=== PATIENT | male | born 2000 | race Caucasian/White ===

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

== ENCOUNTER 2019-02-21 01:07 | Emergency (ER) | payer SELFPAY ==
[2019-02-21 01:08] VITALS: BP 160/91; PULSE 86; RESP 16; TEMP 36.9; O2SAT 99; BMI 32.4
--- NOTE | 2019-02-21 02:08 | ED.VIS.GEN ---
History of Present Illness Chief Complaint: Laceration Narrative: Patient presents with a laceration to his left long finger. This was cut with a knife while skinning a deer. He is uncertain of his last tetanus immunization. No significant pain, no numbness tingling weakness loss of function. Past Medical History - Allergies and Home Meds Allergies/Adverse Reactions: Allergies No Known Allergies Allergy (Verified 02/21/19 01:07) Primary Care Physician: Jr Shahid MD [Primary Care Provider] - Past Medical History: None Surgical History: appendectomy, - - Right foot skin graft Smoking Status: Current every day smoker - Family History Paternal Family History: Reports: - - Appendectomy Review of Systems All systems negative except as indicated General: Denies: Fever Cardiovascular: Denies: Chest pain Respiratory: Denies: Dyspnea, Cough Gastrointestinal: Denies: Vomiting Physical Exam Vital Signs/Narrative: Vital Signs Temp Pulse Resp BP Pulse Ox 02/21/19 01:08 98.5 F 86 16 160/91 H 99 General: Well nourished, Well developed Head: Normocephalic Eyes: EOMI ENT: Moist mucous membranes Extremities: - - 5 mm laceration to the back of the left long finger proximal to the PIP active full range of motion of the digit and hand brisk capillary refill normal sensation to light touch distally Skin: Normal color Neurological: Alert Psychological: Normal affect Diagnostic/Tx/Re-eval - Medical Decision Making Patient presents with a tiny laceration to his finger. This is not gaping it is not bleeding. Dermabond was applied. Patient was instructed on local wound care and was discharged home. ED Disposition - Plan for ED Patient: Disposition: Home or Assisted Living Diagnosis: Finger laceration Instructions: LACERATION, Extremity (Skin Glue) Referrals: Jr Shahid MD [Primary Care Provider] -
[2019-02-21 02:22] VITALS: RESP 16
== END 2019-02-21 02:25 | disposition home or self-care (01) ==
PROVIDERS: Emergency Provider Emergency Medicine; Family Provider Pediatrics; PCP Pediatrics
DX: S61.213A Laceration without foreign body of left middle finger without damage to nail, initial encounter (principal); W26.0XXA Contact with knife, initial encounter; Y93.89 Activity, other specified; Y92.9 Unspecified place or not applicable; Y99.9 Unspecified external cause status; F17.200 Nicotine dependence, unspecified, uncomplicated
CPT/HCPCS: 12001; 90715; 99282

== ENCOUNTER 2020-03-20 23:14 | Emergency (ER) | payer OTHER, MEDICAID, SELFPAY ==
[2020-03-08 15:45] VITALS: BMI 32.4
[2020-03-20 23:15] VITALS: BP 136/74; PULSE 91; RESP 18; TEMP 35.7; O2SAT 97; BMI 34.9
[2020-03-20 23:23] VITALS: BP 136/74; PULSE 91; RESP 18; TEMP 35.7; O2SAT 97
--- NOTE | 2020-03-20 23:35 | ED.VIS.GEN ---
History of Present Illness Chief Complaint: Abscess Informant: Patient Onset: Days - 3-4 Context: Gradual Onset Timing: Continuous Quality: sore Location: perineum Current Severity: Moderate Maximum Severity: Moderate Worsened by: sitting, palpation Relieved by: standing and relieving pressure from affected area Associated Symptoms: none. no spontaneous drainage. no fevers/chills/systemic sx. Narrative: Patient has never had this before. Painful tender area left side of his perineum. Unknown if ingrown hair or something else but no obvious etiology. Has never had to have an abscess drained in the past. Denies having any medical problems. Prior similar symptoms: No Recent Illness/Hospitalization: No Past Medical History - Allergies and Home Meds Allergies/Adverse Reactions: Allergies No Known Allergies Allergy (Verified 02/21/19 01:07) Primary Care Physician: NOT,DEFINED [NON-STAFF] - Past Medical History: None Surgical History: appendectomy, - - Right foot skin graft Smoking Status: Current every day smoker - Family History Paternal Family History: Reports: - - Appendectomy Review of Systems General: Denies: Chills, Fever, Sweats Eyes: Denies: Visual changes - bilaterally, Diplopia ENT: Denies: Rhinorrhea, Sore throat Cardiovascular: Denies: Chest pain, Palpitations Respiratory: Denies: Dyspnea, Cough, Dyspnea on exertion Gastrointestinal: Denies: Abdominal pain, Nausea, Vomiting, Diarrhea, Melena, Hematochezia Genitourinary: Denies: Dysuria, Hematuria, Frequency Musculoskeletal: Denies: Myalgias, Back pain, Swelling, Extremity Pain Skin: Reports: Abscess. Denies: Rash Neurological: Denies: Headache, Weakness, Numbness Physical Exam Vital Signs/Narrative: Vital Signs Temp Pulse Resp BP Pulse Ox 03/20/20 23:23 96.3 F L 91 18 136/74 H 97 03/20/20 23:15 96.3 F L 91 18 136/74 H 97 Inital Vital Signs reviewed: Yes General: Well nourished, Well developed, No Acute Distress Head: Normocephalic, Atraumatic Eyes: Perrl, EOMI Extremities: Nontender, No edema Skin: Normal color, Rash - Approximately 1.5 cm diameter indurated tender abscess in the area of the perineum, just to the left, involving where the scrotum inserts into the perineum but not necessarily into the scrotum. Is just anterior to the anus but is not perianal. No spontaneous discharge. No significant surrounding Neurological: Alert, Oriented x3, Cranial nerves II-XII grossly intact, Normal Strength, Normal Sensation, Normal Gait Psychological: Normal affect, Normal Mood Diagnostic/Tx/Re-eval - Medical Decision Making This abscess was very small and give the patient options, including incision and drainage which she chose, he was also offered 18-gauge needle aspiration and antibiotics only, I did not recommend the latter. He will be placed on Bactrim to cover against MRSA, he was advised with regards to sitz baths and dressing. Procedures Procedure(s): Simple abscess incision and drainage-after isopropanol and chlorhexidine prep, local anesthesia 3 cc 1% plain lidocaine, the abscess was superficially stabbed with a #11 blade, a very small amount of purulent discharge was expressed, there was minimal bleeding, the cavity was probed with Kellys bluntly and irrigated with 20 cc of saline, dressed with bacitracin and a piece of gauze. No complications, tolerated well. ED Disposition - Plan for ED Patient: Disposition: Home or Assisted Living Diagnosis: Cutaneous abscess of perineum Instructions: ED Abscess Incision And Drainage Prescriptions: Sulfamethoxazole/Trimethoprim [Bactrim Ds Tablet] 1 ea PO BID #20 tab Prescription Printed Referrals: Doctor,Your [STAFF PHYSICIAN] - As Needed Additional Instructions: Perform sitz baths twice daily for the first 3 or 4 days, until there is no more bleeding or discharge from the wound, using warm/hot soapy water for 10-15 minutes each. Afterwards, dab dry and place a fresh piece of gauze with antibiotic ointment on the affected area.
[2020-03-20] MEDS: Lidocaine 1% (20 ml mdv) 20 ML Vial INFILT (23:40)
[2020-03-20] MEDS: Smz/Tmp Ds Tablet 1 TABLET PO (23:40)
== END 2020-03-21 00:10 | disposition home or self-care (01) ==
PROVIDERS: Emergency Provider Emergency Medicine
DX: L02.215 Cutaneous abscess of perineum (principal); F17.200 Nicotine dependence, unspecified, uncomplicated
CPT/HCPCS: 10060; 99283

== ENCOUNTER 2020-05-08 21:06 | Emergency (ER) | payer OTHER, MEDICAID, SELFPAY ==
[2020-05-08 21:06] VITALS: BP 141/76; PULSE 88; RESP 16; TEMP 36.6; O2SAT 97; BMI 33.6
--- NOTE | 2020-05-08 21:13 | US_ITS ---
STUDY: SCROTUM ULTRASOUND REASON FOR EXAM: Male, 20 years old. Right-sided pain and swelling. TECHNIQUE: Ultrasound evaluation of the scrotum was performed with color Doppler and static crawford-scale imaging. COMPARISON: None. FINDINGS: RIGHT Testicle: No mass, normal echogenicity. Normal arterial and venous Doppler flow. Measures 4.5 x 2.9 x 2.3 cm. Epididymis: Normal. Contains a physiologic 0.4 cm cyst. Hydrocele: Small. Varicocele: None. Scrotal danica noted on the right, small calcification, benign. LEFT Testicle: No mass, normal echogenicity. Normal arterial and venous Doppler flow. Measures 2.2 x 2.6 x 4.4 cm. Epididymis: Normal. Contains a physiologic 0.4 cm cyst.. Hydrocele: None. Varicocele: None. US/Testicular with Arterial Flow IMPRESSION: Negative for bilateral testicular mass, torsion or epididymitis. Small right hydrocele. Electronically Signed: Caleb Camarena MD at 22:12 EDT Tel , Service support ,
--- NOTE | 2020-05-08 21:14 | ED.DCSUM_ITS ---
History of Present Illness Chief Complaint: Male Pain/Injury Informant: Patient Onset: Days Context: Gradual Onset Timing: Intermittent Current Severity: Moderate Maximum Severity: Moderate Narrative: The patient is a 20-year-old male that presents to the emergency department for right testicular pain. He states that over the past 2 weeks, he has noticed a dull ache in his testicles. He states tonight, he felt like he was having more swelling. He does describe some mild nausea. He denies any penile discharge or bleeding. He denies any back pain. He said no vomiting, fever, or trauma. He is otherwise been in his normal state of health. Prior similar symptoms: No Recent Illness/Hospitalization: No Past Medical History - Allergies and Home Meds Allergies/Adverse Reactions: Allergies No Known Allergies Allergy (Verified 05/08/20 21:08) Primary Care Physician: Denver Riddle MD [STAFF PHYSICIAN] - Prior records reviewed: Yes Past Medical History: None Surgical History: appendectomy, - - Right foot skin graft Smoking Status: Current every day smoker - Family History Paternal Family History: Reports: - - Appendectomy Review of Systems General: Denies: Chills, Fever, Sweats Eyes: Denies: Visual changes - bilaterally, Diplopia ENT: Denies: Rhinorrhea, Sore throat Cardiovascular: Denies: Chest pain, Palpitations Respiratory: Denies: Dyspnea, Cough, Dyspnea on exertion Gastrointestinal: Denies: Abdominal pain, Nausea, Vomiting, Diarrhea, Melena, Hematochezia Genitourinary: Denies: Dysuria, Hematuria, Frequency Musculoskeletal: Denies: Back pain, Extremity Pain Skin: Denies: Rash, Wounds Neurological: Denies: Headache, Weakness, Numbness Physical Exam Vital Signs/Narrative: Vital Signs Temp Pulse Resp BP Pulse Ox 05/08/20 21:06 97.8 F 88 16 141/76 H 97 Inital Vital Signs reviewed: Yes General: Well nourished, Well developed, No Acute Distress Head: Normocephalic, Atraumatic Eyes: Perrl, EOMI ENT: Moist mucous membranes, No rhinorrhea Neck: Supple, Nontender Cardiovascular: Regular rate, Regular rhythm, No murmurs Respiratory: No distress, CTA bilaterally, Chest nontender Abdomen: Soft, Nontender, Nondistended, Normal bowel sounds : - - Patient has mild tenderness over the right testicle. Cremasteric is preserved. Back: Nontender, Normal Inspection Extremities: Nontender, No edema Skin: Normal color, No rash Neurological: Alert, Oriented x3, Cranial nerves II-XII grossly intact, Normal Strength, Normal Sensation Psychological: Normal affect, Normal Mood Diagnostic/Tx/Re-eval Clinical Impression(s) from Imaging Studies Testicular Ultrasound 05/08/20 21:13 IMPRESSION: Negative for bilateral testicular mass, torsion or epididymitis. Small right hydrocele. Electronically Signed: Caleb Camarena MD at 22:12 EDT Tel , Service support , Abnormal Lab Results 05/08/20 21:20 Urine Color Yellow Urine Clarity Clear Urine pH 6.5 Ur Specific [place] 1.020 Urine Protein Negative Urine Glucose (UA) Normal Urine Ketones Negative Urine Occult Blood Negative Urine Nitrite Negative Urine Bilirubin Negative Urine Urobilinogen Normal Ur Leukocyte Esterase Negative Urine RBC 0 SEEN Urine WBC 0 SEEN Ur Squamous Epith Cells 0 SEEN Urine Bacteria RARE Urine Mucus 0 SEEN - Medical Decision Making The patient has normal cremasteric. There is no evidence of torsion. He has mild tenderness of the right testicle. I did obtain an ultrasound. There is no evidence of torsion, epididymitis, or other dangerous process. There is a small hydrocele. I am going to treat the patient with anti-inflammatories and outpatient urology follow-up. He is comfortable with this plan of care. Impression 1. Hydrocele ED Disposition - Plan for ED Patient: Instructions: ED Hydrocele, Type Not Specified Prescriptions: Naproxen [Naprosyn] 500 mg PO BID PRN #20 tab Prescription Printed Referrals: Denver Riddle MD [STAFF PHYSICIAN] -
[2020-05-08 21:32] LABS: Mucous, Urine 0 SEEN /hpf (<or=2+); Red Blood Cells-Urine 0 SEEN /hpf (0-5); Squamous Epithelial Cells - UA 0 SEEN /hpf (0-5); White Blood Cells 0 SEEN /hpf (0-5)
[2020-05-08 21:43] LABS: Color, Urine Yellow (Yellow); Glucose, Dipstick Normal (Normal); Ketone-Dipstick Negative (Negative); Leukocyte Esterase-Dipstick Negative /ul (Negative); Nitrite-Dipstick Negative (Negative); Occult Blood-Urine Negative /ul (Negative); Protein-Dipstick Negative (Negative); Urine Bilirubin Dipstick Negative (Negative); Urine Clarity Clear (Clear); Urine Urobilinogen Normal (Normal); Urine pH 6.5 (5.0 - 8.0)
[2020-05-08 22:08] LABS: Bacteria RARE /hpf (None Seen)
== END 2020-05-08 22:22 | disposition home or self-care (01) ==
LOC: ED 21:25
PROVIDERS: Emergency Provider Emergency Medicine
DX: N43.3 Hydrocele, unspecified (principal); R11.0 Nausea; F17.200 Nicotine dependence, unspecified, uncomplicated
CPT/HCPCS: 76870; 81001; 93976; 99282

== ENCOUNTER 2021-01-22 16:41 | Emergency (ER) | payer BC, MEDICAID, SELFPAY ==
[2021-01-22 16:42] VITALS: BP 124/86; PULSE 96; RESP 14; TEMP 36.2; O2SAT 99; BMI 35.5
--- NOTE | 2021-01-22 18:22 | US_ITS ---
STUDY: SCROTUM ULTRASOUND REASON FOR EXAM: Male, 20 years old. Right testicular pain. TECHNIQUE: Ultrasound evaluation of the scrotum was performed with color Doppler and static crawford-scale imaging. COMPARISON: None. FINDINGS: RIGHT TESTICLE INTRATESTICULAR: There is a normal size of the right testicle. The right testicle measures 4.4 x 2.7 x 2.3 cm. There is a homogenous echotexture. There is normal arterial and normal venous vascularity. There is no demonstrated right testicular mass or cyst. EXTRATESTICULAR: The epididymis is normal in size. The epididymis head measures 1.2 x 0.6 x 0.7 cm. There is normal vascularity of the epididymis. There is a 4 mm epididymal head cyst. There is a small hydrocele. There are prominent extratesticular veins consistent with a varicocele. There is a scrotal parole seen within the hydrocele. LEFT TESTICLE INTRATESTICULAR: There is a normal size of the left testicle. The left testicle measures 4.6 x 2.6 x 2.3 cm. There is a homogenous echotexture. There is normal arterial and normal venous vascularity. There is no demonstrated left testicular mass or cyst. EXTRATESTICULAR: The epididymis is normal in size. The epididymis head measures 1.3 x 1.0 x 0.8 cm. There is normal vascularity of the epididymis. There is no demonstrated epididymal cystic structure. There is is a 3 mm epididymal head cyst. There are prominent extratesticular veins consistent with a varicocele. There is no demonstrated extratesticular mass or cyst. US/Testicular with Arterial Flow IMPRESSION: 1. Right varicocele. 2. Bilateral small hydroceles. 3. Bilateral epididymal head cysts. 4. Normal testicles. Electronically Signed: Jose Francisco Contreras DO at 19:22 EST Tel [phone], Service support ,
--- NOTE | 2021-01-22 19:35 | EDS_ITS ---
HPI History of Present Illness Chief Complaint: Male Pain/Injury Narrative Narrative: Patient continues to have right testicle pain. He states he sometimes feels like it is radiating up into his pelvic area. He denies dysuria. Patient previously had an ultrasound and was told he had varicoceles. He is not followed up with anybody. He denies any trauma. PFSH PFS Home Medications NK 01/22/21 [History Last Taken Unknown] Allergy/AdvReac Type Severity Reaction Status Date / Time No Known Allergies Allergy Verified 01/22/21 16:44 Surgical History Hx of appendectomy Hx of skin graft Social History Smoking Status: Current every day smoker tobacco type: cigarettes ROS ROS ED Constitutional Constitutional ED: Denies fever(s) or subjective Eyes Eyes: Denies blurry vision ENT ENT ED: Denies rhinorrhea or sore throat Cardiovascular Cardiovascular: Denies chest pain or palpitations Respiratory/Chest Respiratory/Chest: Denies cough or dyspnea Gastrointestinal Gastrointestinal: Denies abdominal pain, nausea or vomiting Genitourinary Genitourinary ED: Reports other Details: Right testicular pain ; Denies dysuria, hematuria or testicular swelling Musculoskeletal Musculoskeletal: Denies arthralgias or myalgias Neurologic Neurologic: Denies headache(s) or paresthesias EXAM Physical Exam Const Vital Signs: 01/22/21 16:42 Temperature 97.1 F L Temperature Source Temporal Pulse Rate 96 Respiratory Rate 14 Blood Pressure 124/86 H Blood Pressure Mean 98 Pulse Ox 99 Oxygen Delivery Method Room Air Positive well nourished General Appearance ED: NAD; Negative for pallor HEENT Reports moist mucous membranes normocephalic and atraumatic Eyes EOMs intact bilaterally Resp normal respiratory effort and clear to auscultation bilaterally Cardio regular rate and regular rhythm GI non-tender and non-distended Palpation: soft Penis: normal penis and circumcised Testes: testicular lie normal; Negative for testicular swelling, testicular tenderness or high-riding testicle Back/Spine no CVA tenderness Neuro oriented x3 and CN's II-XII intact bilaterally Sensorium / Orientation: alert Psych mental status grossly normal Thought Process: normal thought process Skin General Skin Exam: Negative for jaundice or pallor Rashes: no rashes MDM MDM MDM Narrative Medical decision making narrative: Patient has a normal testicular exam is not tender to palpation. I did obtain ultrasound of the testicles and it does show a right varicocele which is known from previously. He also has small bilateral hydroceles. In addition to this there is noted bilateral epididymal head cysts. Patient will be given follow-up with urology since he has not followed up since and is continue to have pain. Patient will be discharged home in stable condition. Impression: 1. Right testicular varicocele. 2. Bilateral small hydroceles 3. Bilateral epididymal head cyst Radiography Diagnostic Testing: Clinical Impression(s) from Imaging Studies Testicular Ultrasound 01/22/21 18:22 IMPRESSION: 1. Right varicocele. 2. Bilateral small hydroceles. 3. Bilateral epididymal head cysts. 4. Normal testicles. Electronically Signed: Jose Francisco ContrerasDO at 19:22 EST Tel [phone], Service support , Discharge Plan Triage Chief Complaint: Male Pain/Injury ED Provider: Severino Hamm Dx/Rx/DC Orders Instructions: ED Varicocele Prescriptions: No Action NK RF: 0 Primary Care Provider: Care Physician,No Primary Referrals: Denver Riddle MD [STAFF PHYSICIAN] - As soon as possible Care Physician,No Primary [Primary Care Provider] - Activity Restrictions/Additional Instructions: You have a varicocele on your right testicle. You have small hydroceles on each testicle. There is also small cysts on each testicle. I have given you follow- up with Dr. Riddle for this. Disposition Disposition: Home, Self Care Discharge Date/Time: 01/22/21 19:44
== END 2021-01-22 19:44 | disposition home or self-care (01) ==
PROVIDERS: Emergency Provider Student in an Organized Health Care Education/Training Program
DX: I86.1 Scrotal varices (principal); N43.3 Hydrocele, unspecified; N50.3 Cyst of epididymis; F17.210 Nicotine dependence, cigarettes, uncomplicated
CPT/HCPCS: 76870; 93976; 99282

== ENCOUNTER 2021-10-02 19:43 | Emergency (ER) | payer MEDICAID, SELFPAY ==
[2021-10-02 19:44] VITALS: BP 125/84; PULSE 98; RESP 18; TEMP 36.1; O2SAT 98; BMI 37.5
--- NOTE | 2021-10-02 19:56 | US_ITS ---
EXAM: US SCROTUM CLINICAL INDICATION: right testicle pain TECHNIQUE: Realtime ultrasound of the testicles was performed with grayscale and Color Doppler analysis. This report was created using e[employer] report [employer] technology. COMPARISON: 01/22/2021. FINDINGS: RIGHT TESTICLE: Right testis measures 4.4 x 2.5 x 2.8 cm. Normal in size and echotexture. No focal lesion. Normal blood flow is present. LEFT TESTICLE: Left testis measures 4.4 x 2.3 x 2.9 cm. Normal in size and echotexture. No focal lesion. Normal blood flow is present. EPIDIDYMIDES: Right epididymal head measures 1.3 x 0.6 cm. 3 mm epididymal cyst. Left epididymal head measures 1 x 0.9 cm. Left epididymal cysts measure 3 mm. Normal color Doppler flow pattern in the epididymis. SCROTUM: Incidental calcification in the right scrotum. No hydrocele. No varicocele. US/Testicular with Arterial Flow IMPRESSION: 1. Normal testes. No acute findings. 2. Epididymal cysts. Electronically Signed: Terrie Sharma MD at 21:42 EDT Reading Location ID and State: [id number] / Tel , Service support ,
--- NOTE | 2021-10-02 19:57 | EX.ED.GUMALE ---
HPI History of Present Illness Chief Complaint: Male Pain/Injury Narrative Narrative: 21-year-old male presenting with right testicular pain. States has had this in the past. He was told it was a cyst. He was given urology follow-up. He states he followed up with somebody in [place]. He cannot recall his name. He states that when he saw him he was told that the cyst is too small and there is nothing to do for it. He states that he started to have pain again a couple of months ago and his urologist that if he has pain to go to the emergency room. He did not want to see him back in the office for repeat visit. Patient denies any trauma to the testicle. He denies any urethral discharge. He denies rashes. PFSH PFSH Home Medications naproxen 500 mg tablet (Naprosyn) 500 mg PO BID PRN pain #20 tabs 10/02/21 [Rx Last Taken Unknown] Allergy/AdvReac Type Severity Reaction Status Date / Time No Known Allergies Allergy Verified 10/02/21 19:45 Surgical History Hx of appendectomy Hx of skin graft Social History Smoking Status: Current every day smoker tobacco type: cigarettes ROS ROS ED Constitutional Constitutional ED: Denies chills or fever(s) Eyes Eyes: Denies change in vision ENT ENT ED: Denies rhinorrhea or sore throat Cardiovascular Cardiovascular: Denies chest pain or palpitations Respiratory/Chest Respiratory/Chest: Denies cough or dyspnea Gastrointestinal Gastrointestinal: Denies abdominal pain or constipation Genitourinary Genitourinary ED: Reports other Details: No urethral discharge. Right testicular pain ; Denies dysuria, hematuria or testicular mass Musculoskeletal Musculoskeletal: Denies arthralgias or back pain Integumentary Denies abscess Neurologic Neurologic: Denies headache(s) Psychiatric Psychiatric: Denies anxiety or depression EXAM Physical Exam Const Vital Signs: 10/02/21 19:44 Temperature 97 F L Temperature Source Temporal Pulse Rate 98 Respiratory Rate 18 Blood Pressure 125/84 H Blood Pressure Mean 97 Pulse Ox 98 Oxygen Delivery Method Room Air Positive well nourished General Appearance ED: Negative for pallor HEENT Reports moist mucous membranes and dry mucous membranes normocephalic and atraumatic Mouth ED: Yes dry mucous membranes Mouth: dry mucous membranes Eyes PERRL and EOMs intact bilaterally Neck no lymphadenopathy Resp normal respiratory effort and clear to auscultation bilaterally Cardio regular rate and regular rhythm GI non-tender no CVA tenderness Penis: normal penis; Negative for ecchymosis, mass, nodule, papules, pustules or vesicles Meatus: meatus normal; Negative for meatal discharge or blood at meatus Scrotum: testes descended bilaterally and cremasteric reflex present Testes: testicular lie normal and testicular tenderness right; Negative for testicular mass, blue dot sign or high-riding testicle Epididymis: Right: Cyst Back/Spine no CVA tenderness Neuro oriented x3 and CN's II-XII intact bilaterally Sensorium / Orientation: alert Motor Exam: strength 5/5 throughout Psych mental status grossly normal Skin General Skin Exam: Negative for jaundice or pallor MDM MDM MDM Narrative Medical decision making narrative: 21-year-old male presenting with testicular pain and has a history of epididymal cysts. He seen urology in [place] for this. He is currently awaiting another urology appointment and [facility]. He states that he cannot see urology in [place] because of his insurance. He has some pain over the right epididymal region without any physical exam evidence of testicular torsion. I checked a urinalysis which is negative. Testicular ultrasound is negative for torsion and shows good blood flow there is again noted epididymal cyst. Patient counseled to follow-up with urology for this. He is given Naprosyn for pain. Patient stable for discharge. Impression: 1 epididymal cyst Lab Data Attestation: I reviewed the patient's lab results. Labs: Laboratory Results - last 24 hr 10/02/21 20:15 Urine Color Yellow Urine Clarity Clear Urine pH 7.0 Ur Specific [place] 1.015 Urine Protein Negative Urine Glucose (UA) Normal Urine Ketones Negative Urine Occult Blood Negative Urine Nitrite Negative Urine Bilirubin Negative Urine Urobilinogen Normal Ur Leukocyte Esterase Negative Urine RBC 0 SEEN Urine WBC 0-5 SEEN Ur Squamous Epith Cells 0-5 SEEN Urine Bacteria 0 SEEN Urine Mucus 0 SEEN Radiography Diagnostic Testing: Clinical Impression(s) from Imaging Studies Testicular Ultrasound 10/02/21 19:56 IMPRESSION: 1. Normal testes. No acute findings. 2. Epididymal cysts. Electronically Signed: Terrie Sharma MD at 21:42 EDT Reading Location ID and State: [id number] / Tel , Service support , Discharge Plan Triage Chief Complaint: Male Pain/Injury ED Provider: Severino Hamm Dx/Rx/DC Orders Instructions: ED Testicular Pain, Unclear Cause Prescriptions: New naproxen [Naprosyn] 500 mg tablet 500 mg PO BID PRN (Reason: pain) Qty: 20 0RF Primary Care Provider: Care Physician,No Primary Referrals: Care Physician,No Primary [Primary Care Provider] - Disposition Disposition: Home, Self Care
[2021-10-02 20:22] LABS: Bacteria 0 SEEN /hpf (None Seen); Mucous, Urine 0 SEEN /hpf (<or=2+); Red Blood Cells-Urine 0 SEEN /hpf (0-5)
[2021-10-02 20:33] LABS: Color, Urine Yellow (Yellow); Glucose, Dipstick Normal (Normal); Ketone-Dipstick Negative (Negative); Leukocyte Esterase-Dipstick Negative /ul (Negative); Nitrite-Dipstick Negative (Negative); Occult Blood-Urine Negative /ul (Negative); Protein-Dipstick Negative (Negative); Specific Gravity, Urine 1.015 (1.002-1.030); Urine Bilirubin Dipstick Negative (Negative); Urine Clarity Clear (Clear); Urine Urobilinogen Normal (Normal)
[2021-10-02 21:26] LABS: Squamous Epithelial Cells - UA 0-5 SEEN /hpf (0-5); White Blood Cells 0-5 SEEN /hpf (0-5)
[2021-10-02 22:11] VITALS: BP 138/76; PULSE 76; RESP 18; O2SAT 100
== END 2021-10-02 22:12 | disposition home or self-care (01) ==
PROVIDERS: Emergency Provider Student in an Organized Health Care Education/Training Program; Visit Provider Student in an Organized Health Care Education/Training Program
DX: N50.3 Cyst of epididymis (principal); F17.210 Nicotine dependence, cigarettes, uncomplicated
CPT/HCPCS: 76870; 81001; 93976; 99282

== ENCOUNTER 2021-11-05 12:14 | Observation (INO) | payer MEDICAID, SELFPAY ==
[2021-11-05] VITALS (8 sets, daily range): BP systolic 117–129; BP diastolic 65–96; PULSE 73–90; RESP 16–18; TEMP 36.4–36.9; O2SAT 73–97; BMI 37.3; BMI 37.4
--- NOTE | 2021-11-05 12:26 | EDS_ITS ---
HPI HPI - Psych History of Present Illness Chief Complaint: Mental Health Informant: patient Narrative Narrative: Patient is a 21-year-old male presenting via police for concern of depression and suicidal ideation. Patient called his father today saying that he was depressed. He took 5-7 of his 's Wellbutrin which he states to help him feel happier. Patient states that he looked up on the Internet how much he took and then called his father to tell him. Patient states he did not realize he took too much when he initially took these pills. Told his father that he wants to end it. When asked about this patient states he was talking about ending his depression. Father called 911 and patient was brought to the emergency room cooperatively. Patient currently denies SI. Patient states he has a lot of recent stressors life as his left him last week with her daughter. His other daughter was recently removed from his household and there is an active CPS case. He also notes that his aunt couple weeks ago from cancer. Patient states I give up on trying to make everyone happy and I cannot be happy if not with my . He talks about giving up. He does follow with a new day and sees counseling with Sunita there. He is never been on any depression medications. The pill bottle brought in and his bupropion SR 150 mg. It was filled on 11/23/2020. [facility] Home Medications NK 11/05/21 [History Last Taken Unknown] Allergy/AdvReac Type Severity Reaction Status Date / Time No Known Allergies Allergy Verified 11/05/21 12:27 Surgical History Hx of appendectomy Hx of skin graft Social History Smoking Status: Current every day smoker tobacco type: cigarettes ROS ROS ED Constitutional Constitutional ED: Denies chills or fever(s) Eyes Eyes: Denies change in vision ENT ENT ED: Denies sore throat Cardiovascular Cardiovascular: Denies chest pain or palpitations Respiratory/Chest Respiratory/Chest: Denies cough Gastrointestinal Gastrointestinal: Denies abdominal pain, nausea or vomiting Musculoskeletal Musculoskeletal: Denies arthralgias or myalgias Integumentary Denies rash Neurologic Neurologic: Denies headache(s) or weakness Psychiatric Psychiatric: Reports depression; Denies anxiety, suicidal ideation or suicidal thoughts EXAM Physical Exam Const Vital Signs: 11/05/21 12:16 11/05/21 13:15 Temperature 97.7 F L Temperature Source Temporal Pulse Rate 90 Respiratory Rate 16 16 Blood Pressure 129/96 H Blood Pressure Mean 107 Pulse Ox 97 Oxygen Delivery Method Room Air Positive well nourished and well developed General Appearance ED: well developed and NAD HEENT Reports moist mucous membranes Eyes PERRL and EOMs intact bilaterally Neck supple Resp normal respiratory effort and clear to auscultation bilaterally Cardio no murmurs Rate: regular rate Rhythm: regular rhythm GI non-tender and non-distended Extremity normal to inspection General Extremety ED: Negative for edema or tenderness General Extremity: Negative for edema Neuro oriented x3 Motor Exam: muscle tone normal throughout Psych cooperative Appearance: grossly normal Activity / Motor Behavior: avoids eye contact Mood & Affect: depressed Thought Process: normal thought process Thought Content: No suicidality and No homicidality Attention / Concentration: attention grossly intact Insight: limited Judgement: questionable Skin Lesions: no lesions Rashes: no rashes MDM MDM MDM Narrative Medical decision making narrative: Patient evaluated after he intentionally took 5 to 7 x 150 mg Wellbutrin SR tablets. He states he was not trying to overdose just trying to feel better. Patient is depressed with a family history of suicide and multiple home stressors. Is not currently on any medications. Spoke with poison controlAlex, who recommends watching him for 24 hours because of risk of late onset seizures and arrhythmia. Patient be admitted to the hospital for further monitoring until be medically cleared and then obtain psychiatric placement. [place] slip is filed from police. Lab Data Attestation: I reviewed the patient's lab results. Labs: Laboratory Results - last 24 hr 11/05/21 11/05/21 11/05/21 12:30 13:00 13:00 WBC 8.9 RBC 5.52 Hgb 17.3 H Hct 47.7 MCV 86.4 MCH 31.3 MCHC 36.3 H RDW Std Deviation 40.0 RDW Coeff of Luis Angel 13.0 Plt Count 265 MPV 9.3 Immature Gran % (Auto) 0.200 Neut % (Auto) 72.3 H Lymph % (Auto) 18.0 L Starr % (Auto) 8.9 Eos % (Auto) 0.3 Baso % (Auto) 0.3 Absolute Neuts (auto) 6.5 Absolute Lymphs (auto) 1.61 Nucleated RBC % 0 Sodium 140 Potassium 3.7 Chloride 108 H Carbon Dioxide 25.0 Anion Gap 7 BUN 13 Creatinine 1.35 H Estim Creat Clear Calc 80.24 Est GFR (MDRD) Af Amer 85 Est GFR (MDRD) Non-Af 70 BUN/Creatinine Ratio 9.6 L Glucose 110 H Calcium 9.9 Urine Opiates Screen NEGATIVE Urine Methadone Screen NEGATIVE Ur Barbiturates Screen NEGATIVE Ur Phencyclidine Scrn NEGATIVE Ur Amphetamines Screen NEGATIVE MDMA (Ecstasy) Screen POSITIVE H U Benzodiazepines Scrn NEGATIVE Urine Cocaine Screen NEGATIVE U Cannabinoids Screen NEGATIVE Ur Drug Screen Comment Ethyl Alcohol 11/05/21 13:00 WBC RBC Hgb Hct MCV MCH MCHC RDW Std Deviation RDW Coeff of Luis Angel Plt Count MPV Immature Gran % (Auto) Neut % (Auto) Lymph % (Auto) Starr % (Auto) Eos % (Auto) Baso % (Auto) Absolute Neuts (auto) Absolute Lymphs (auto) Nucleated RBC % Sodium Potassium Chloride Carbon Dioxide Anion Gap BUN Creatinine Estim Creat Clear Calc Est GFR (MDRD) Af Amer Est GFR (MDRD) Non-Af BUN/Creatinine Ratio Glucose Calcium Urine Opiates Screen Urine Methadone Screen Ur Barbiturates Screen Ur Phencyclidine Scrn Ur Amphetamines Screen MDMA (Ecstasy) Screen U Benzodiazepines Scrn Urine Cocaine Screen U Cannabinoids Screen Ur Drug Screen Comment Ethyl Alcohol < 3.0 Rhythm Strip Rhythm Strip: Sinus Rhythm Rate: 82 Ectopy: None EKG Initial EKG: Attestation: I personally reviewed and interpreted this EKG as follows: Interpretation: Sinus Rhythm Comments: Normal sinus rhythm at a rate of 82 Normal axis Normal QRS Normal QTc Normal ST segments Discharge Plan Triage Chief Complaint: Mental Health ED Provider: Mireya Del Angel Dx/Rx/DC Orders Clinical Impression: Depression, Bupropion overdose Prescriptions: No Action NK Primary Care Provider: Care Physician,No Primary Referrals: Care Physician,No Primary [Primary Care Provider] - Disposition Disposition: Acute Care Hospital [facility]
[2021-11-05 12:55] LABS: Amphetamine Urine VISTA NEGATIVE (<1000 ng/mL); Barbiturate Urine VISTA NEGATIVE (< 200 ng/mL); Benzodiazepine Urine VISTA NEGATIVE (< 200 ng/mL); Cocaine Urine VISTA NEGATIVE (< 300 ng/mL); Ecstacy Urine VISTA POSITIVE (< 500 ng/mL); Methadone Urine VISTA NEGATIVE (< 300 ng/mL); PCP Urine VISTA NEGATIVE (< 25 ng/mL); THC Urine VISTA NEGATIVE (< 50 ng/mL); Vista UDS pH Range 6
[2021-11-05 13:06] LABS: Absolute Lymphocyte Count 1.61 X10^3/uL (0.83-4.51); Absolute Neutrophil Count 6.5 X10^3/uL (2.0-7.7); Basophil# 0.03 X10^3/uL; Basophil% 0.3 % (0-1); Eosinophil# 0.03 X10^3/uL; Eosinophils% 0.3 % (0-5); Hematocrit 47.7 % (40-54); Hemoglobin 17.3 g/dL (13.0-16.5); Lymphocyte # 1.61 X10^3/ul (0.83-4.51); Mean Corp Hgb Conc 36.3 g/dL (32-36); Mean Corpuscular Hgb 31.3 pg (27.0-32.0); Mean Corpuscular Volume 86.4 fL (80-94); Mean Platelet Vol. 9.3 fl (6.2-12.0); Monocyte% 8.9 % (0-10); NRBC Flagged by Analyzer 0 % (0-5); Neutrophil # 6.45 X10^3/uL (2.7-7.7); Neutrophil % 72.3 % (47-70); Platelet Count 265 K/mm3 (150-450); Red Blood Count 5.52 M/mm3 (4.6-6.2); White Blood Count 8.9 K/mm3 (4.4-11.0)
[2021-11-05 13:18] LABS: Anion Gap 7 (5-15); BUN 13 mg/dL (7-18); BUN/Creat Ratio 9.6 RATIO (10-20); Calcium,Total 9.9 mg/dL (8.5-10.1); Chloride 108 mmol/L (98-107); Creatinine, Serum 1.35 mg/dL (0.70-1.30); EST Glomerular Filtration Rate 70 mL/min (>60); Est Glom Filt Rate - Afr Amer 85 mL/min (>60); Estimated Creatinine Clearance 80.24 ml/min; Glucose 110 mg/dL (74-106); Potassium 3.7 mmol/L (3.5-5.1); Sodium Level 140 mmol/L (136-145)
[2021-11-05 13:46] LABS: Alcohol, Blood (Medical)-Serum < 3.0 mg/dL
--- NOTE | 2021-11-05 13:48 | CM.ED ---
ANUPAMA Note Referral Source: Border Patrol Agent Kymberly Referral Reason: Mental Health ANUPAMA and met with Officer Kymberly. Officer said that patient's dad had called the parking station attendant as patient had stated he wants to end it today and had taken 5-7 Wellbutrin. Per Officer patient had researched it on line. The Wellbutrin were not his. Patient has a past history of depression. Per Officer patient has issues with CS[employer] and his left him last week. SW spoke to patient's father Elvis. Elvis said that patient had called him at work and he said to patient is your mom ok as patient's mom came to the hospital today. Elvis stated that CSB took custody of patient's older child, age 3 and it is BS and he is fighting with that. Elvis said that patient's took the other baby, patient's child, as she was paranoid that they would open a case on the younger child. Elvis advised that when you have depression the solvent is communication.. not medication. Elvis stated that patient took 8 Wellbutrin. He voiced that patient is seeing a [facility]. Patient's grandfather and uncle completed suicide. Chief Complaint: SW met with patient in the ED room 3. Patient said that he is at the ED as I took some antidepressants.. I was not happy and wanted to be happy. SW asked how long patient has not been happy and he said for awhile. Patient said that he has been pretty upset for one month.. I [facility] and was feeling better and then my took our daughter and it got to me. Patient was asked what was different today, as he has been feeling depression in the past, and patient said my leaving and I talked to her yesterday and I thought we were working things out and it was going to be good but then I talked to her this morning and it was not so good. Patient is but from his . Identified Gender: Male Sexual Orientation: Heterosexual Patient has 2 children named Cruzito age 3 and Keyonna, age 1. Living Situation: Patient resides in an apartment complex with his mom. Support: Nobody and he said it has been like that for 3 years. SW inquired as to what had changed when he had no support and he said my first baby mom left me. History: None Education and Employment: Patient reports that the last grade attended was his 11th grade year. No learning issues or delays. Patient is employed at [employer] working 2nd shift. Patient has [employer] insurance. Mental Health History: Patient has a counselor at [facility] named Kenia who he was seeing every week but now is seeing every other week. Patient reports he is not on any medication for depression. Patient said that previously, a couple of months ago, he took one of his 's Wellbutrin and felt happy and thus he took medication today (med not prescribed to him).Patient has never been to a psych facility. Brother and sister have been to psych facilities in the past. Triggers and stressors: leaving him. Patient said that he feels his is playing mind games as she tells me we are working it out and then she tells her friend another thing. Coping Skills: Nothing per patient. He stated I just sit there. Abuse: Denied Substance Abuse: Patient said I drank a few days ago and stated he drank 3-4 shots of [place] Julius and 1/4 bottle of [place]. He reports he drank a couple days after his left him. Border Patrol Agent said that when he went to patient's room, to get the pill bottle, patient had multiple empty crown royal bottles. SW asked about AOD treatment at [facility] and patient said that he is going for mental health only. Risk to Self and Others Patient denied HI. Patient reports that approximately 2 1/2-3 years ago he cut himself as his child's mom left him and he wanted to feel the pain and take things away from the situation and when social sciences lecturer asked if patient was using cutting as a distraction patient indicated he was. Patient denied any violence toward others or objects. Suicidal: Patient reports he was not suicidal. He reports that when he said that he wanted to end it he wanted the day to be over with and fast forward to get better and sleep it off till tomorrow. Patient said that he was not trying to OD but to feel goood and be happy for a spare moment. Patient voiced that he went on line and looked up Wellbutrin after he OD and then learned he could OD on the antidepressant. Patient reports no previous attempts. Mental Status Exam Orientation x4 Memory: Good Appearance: wearing hospital gown. Clean but disheveled. Mood and affect: Depressed mood and flat affect Communication Pattern: Responds to questions Thought Process: Appropriate. No evidence of AH/VH General Intellectual Functioning: Average Judgement: Poor Insight: Poor Patient denied SI but due to the number of pills patient took 8 per father this production underwriter is concerned it was an overdose attempt. Patient voiced multiple times he did not want to go to psych and when asked why he said family members that went there said it was boring. Patient also said that he didn't want psych as it would look bad on his CPS case. SW believes patient is minimizing his behavior due to his current involvement with CPS. SW advised patient that he was pink slipped and he was going to go and patient did not voice any concern. ANUPAMA consulted with MD Del Angel. and ANUPAMA agree that patient needs to have inpatient psych. Plan: Inpatient psych Nathalie ELY
--- NOTE | 2021-11-05 13:57 | EKG12_ITS ---
Test Reason : Blood Pressure : / mmHG Vent. Rate : 082 BPM Atrial Rate : 082 BPM P-R Int : 130 ms QRS Dur : 082 ms QT Int : 358 ms P-R-T Axes : 039 025 012 degrees QTc Int : 418 ms Normal sinus rhythm Normal ECG Confirmed by BRUNILDA KERNS, RONNIE ([id number]), desk editor ANABELLA CHACON ([id number]) on 11/07/2021 8:37:31 AM Referred By: Confirmed By:RONNIE WORLEY MD
[2021-11-05 14:58] LABS: Salicylate < 1.7 mg/dL (2.8-20.0)
--- NOTE | 2021-11-05 20:12 | CM.ED ---
ANUPAMA left voice mail for PCU web content & social media manager Jade advising of patient. Dex, timekeeping supervisor, called and inquired on patient's status. ANUPAMA had already completed the assessment on patient and could work on the placement tomorrow. ANUPAMA called Selena at [facility] and updated her regarding patient and his dispositon of placement. ANUPAMA faxed the referral to Crisis so they are aware of patient. Plan:Inpatient Psych when medically cleared Nathalie ELY
--- NOTE | 2021-11-05 21:40 | HP.PCM.HOS_ITS ---
HPI - General General Date of Admission: 11/05/21 Date of Service: 11/05/21 Chief Complaint: Intentional drug overdose HPI Narrative ASHLI BOO, is a 21 M who presents to the emergency room at [facility] after his family called the squad to bring the patient and after he took 5-7 of Wellbutrin SR pills that were left at his home by his who had left the patient last week. Patient supposedly told his father that he wanted to end it , he told this examiner he just took the medication because he wanted to feel better and he was depressed. Patient was evaluated by social media developer in the emergency room and was pink slipped, poison control however recommended the patient be observed overnight for possible seizures due to the Wellbutrin. Patient denies any chronic medical problems. Labs obtained were remarkable for creatinine 1.35, patient's talk screen was positive for MDMA. Patient was placed in observation status on PCU, he will be observed on telemetry. [facility] Home Medications NK 11/05/21 [History Last Taken Unknown] Allergy/AdvReac Type Severity Reaction Status Date / Time No Known Allergies Allergy Verified 11/05/21 12:27 Surgical History Hx of appendectomy Hx of skin graft Social History Smoking Status: Current every day smoker tobacco type: cigarettes ROS Constitutional Constitutional: Denies anorexia, change in weight, fever(s), night sweats or weakness Eyes Eyes: Denies blurry vision, change in vision, discharge from eye(s) or eye pain Cardiovascular Cardiovascular: Denies chest pain, claudication, dyspnea on exertion, edema, lightheadedness or palpitations Respiratory/Chest Respiratory/Chest: Denies cough, excessive phlegm production, hemoptysis, productive cough, shortness of breath at rest or shortness of breath with exertion Gastrointestinal Gastrointestinal: Denies abdominal pain, constipation, diarrhea, hematemesis, hematochezia, melena, nausea or vomiting Genitourinary Genitourinary: Denies dysuria, hematuria, urinary frequency, urinary hesitancy, urinary incontinence or urinary urgency Musculoskeletal Musculoskeletal: Denies back pain, joint pain, joint stiffness, joint swelling, myalgias or neck pain Neurologic Neurologic: Denies abnormal gait, abnormal speech, dizziness, focal weakness, headache(s), loss of vision, numbness, other visual disturbances, paresthesias, syncope or tingling Psychiatric Psychiatric: Reports depression and other Details: Patient denied suicidal ideation to this examiner ; Denies anxiety, cognitive impairment, homicidal ideation, irritability, mood swings or suicidal ideation Endocrine Endocrinology: Denies change in body appearance, cold intolerance, excessive sweating, heat intolerance, polydipsia or polyuria Hematologic/Lymphatic Hematologic/Lymphatic: Denies none, anemia, easy bleeding, easy bruising or lymphadenopathy Allergic/Immunologic Allergic/Immunologic: Denies rhinitis, urticaria, eczemia or asthma Vital Signs Vital Signs Vital Signs: 11/05/21 12:16 11/05/21 13:15 11/05/21 14:00 Temperature 97.7 F L Temperature Source Temporal Pulse Rate 90 Respiratory Rate 16 16 18 Respiratory Effort Respiratory Depth Respiratory Pattern Blood Pressure 129/96 H Blood Pressure Mean 107 Blood Pressure Source Blood Pressure Position Blood Pressure Location Pulse Ox 97 Oxygen Delivery Method Room Air 11/05/21 14:14 11/05/21 15:16 11/05/21 15:28 Temperature 97.6 F L 98.4 F Temperature Source Temporal Oral Pulse Rate 76 78 Respiratory Rate 18 16 Respiratory Effort Respiratory Depth Respiratory Pattern Blood Pressure 128/92 H 123/88 H Blood Pressure Mean 104 99 Blood Pressure Source Monitor Blood Pressure Position Semi-Fowlers Blood Pressure Location Left Arm Pulse Ox 95 96 Oxygen Delivery Method Room Air Room Air Room Air 11/05/21 16:36 11/05/21 20:21 Temperature Temperature Source Pulse Rate 88 Respiratory Rate Respiratory Effort Normal Non-Labored Respiratory Depth Normal Respiratory Pattern Normal Blood Pressure Blood Pressure Mean Blood Pressure Source Blood Pressure Position Blood Pressure Location Pulse Ox Oxygen Delivery Method Room Air Weight Weight: 108.4 kg Body Mass Index (BMI) 37.4 Physical Exam Const alert, oriented x3, no apparent distress and healthy appearing General Appearance: cooperative, well kempt and well developed Orientation / Consciousness: awake, oriented to person, oriented to place and oriented to time HEENT normocephalic and moist oral mucous membranes Eyes PERRL, EOMs intact bilaterally and conjunctivae normal Neck supple, no JVD, thyroid normal and no carotid bruits General: trachea midline Resp normal respiratory effort and clear to auscultation bilaterally Auscultation: Negative for rales, rhonchi or wheezes Cardio regular rate, regular rhythm, no murmurs, no rub and no gallops GI normal to inspection, nondistended, normoactive bowel sounds, soft to palpation, non-tender and non-distended Extremity no clubbing, cyanosis or edema Skin no rashes or lesions noted General Skin Exam: no breakdown Neuro oriented x3, CN's II-XII intact bilaterally, no focal motor deficits and no sensory deficits noted Sensorium / Orientation: awake and alert Speech: speech normal Psych Psych Narrative: Patient has flat affect Results Lab / Micro Data Result Diagrams: 11/05/21 13:00 11/05/21 13:00 Labs: Laboratory Results - last 24 hr 11/05/21 12:30: Urine Opiates Screen NEGATIVE, Urine Methadone Screen NEGATIVE, Ur Barbiturates Screen NEGATIVE, Ur Phencyclidine Scrn NEGATIVE, Ur Amphetamines Screen NEGATIVE, MDMA (Ecstasy) Screen POSITIVE H, U Benzodiazepines Scrn NEGATIVE, Urine Cocaine Screen NEGATIVE, U Cannabinoids Screen NEGATIVE, Ur Drug Screen Comment 11/05/21 13:00: WBC 8.9, RBC 5.52, Hgb 17.3 H, Hct 47.7, MCV 86.4, MCH 31.3, MCHC 36.3 H, RDW Std Deviation 40.0, RDW Coeff of Luis Angel 13.0, Plt Count 265, MPV 9.3, Immature Gran % (Auto) 0.200, Neut % (Auto) 72.3 H, Lymph % (Auto) 18.0 L, [place] % (Auto) 8.9, Eos % (Auto) 0.3, Baso % (Auto) 0.3, Absolute Neuts (auto) 6.5, Absolute Lymphs (auto) 1.61, Nucleated RBC % 0 11/05/21 13:00: Sodium 140, Potassium 3.7, Chloride 108 H, Carbon Dioxide 25.0, Anion Gap 7, BUN 13, Creatinine 1.35 H, Estim Creat Clear Calc 80.24, Est GFR (MDRD) Af Amer 85, Est GFR (MDRD) Non-Af 70, BUN/Creatinine Ratio 9.6 L, Glucose 110 H, Calcium 9.9 11/05/21 13:00: Ethyl Alcohol < 3.0 11/05/21 14:23: Salicylates < 1.7 L, Acetone Level NEGATIVE Micro: Microbiology 11/05/21 13:00 Nasal Secretion SARS-CoV-2 Antigen (Rapid) - Final Rhythm Strip Rhythm Strip: Sinus Rhythm Rate: 82 Ectopy: None Assessment & Plan Assessment/Plan (1) Depression: PLAN: Plan 1. Intentional overdose of Wellbutrin-again patient denied any suicidal ideation to this examiner but told me that he was depressed. Patient will be placed into observation status on PCU, I feel it is unlikely the patient will have any seizure episodes from this medication. Patient is currently pink slipped and will possibly go to a psych facility tomorrow #2 chronic depression-patient is not on any antidepressants as an outpatient, he will be evaluated at a psych facility as an inpatient. Charges/Coding Visit Charges OBSV E&M: 10512 Initial observation care L3
[2021-11-06 02:59] VITALS: PULSE 80
[2021-11-06 04:04] VITALS: BP 111/70; PULSE 64; RESP 18; TEMP 36.6; O2SAT 97
[2021-11-06 07:21] VITALS: PULSE 70
[2021-11-06] MEDS: 0.9% Normal Saline 1,000 ML 500 ML IV (09:04)
[2021-11-06 09:10] VITALS: BP 129/71; PULSE 100; RESP 16; TEMP 36.9; O2SAT 96
--- NOTE | 2021-11-06 10:00 | PCM.PN.HOSP ---
Subjective Subjective Doing well, no issues overnight. No signs of seizure activity. Objective Data Objective Data Vital Signs: Vital Signs Temp Pulse Resp BP Pulse Ox O2 Del Method 98.4 F 100 16 129/71 H 96 Room Air 11/06/21 09:10 11/06/21 09:10 11/06/21 09:10 11/06/21 09:10 11/06/21 09:10 11/06/21 09:10 Oxygen Delivery Method Room Air Weight: 238 lb 15.697 oz Body Mass Index (BMI) 37.4 Intake & Output: Intake and Output for Last 24 Hours 11/05/21 11/06/21 11/07/21 03:59 03:59 03:59 Intake Total 240 / 240 120 / 120 Balance 240 / 240 120 / 120 Lab / Micro Data Result Diagrams: 11/05/21 13:00 11/05/21 13:00 Labs: Laboratory Results - last 24 hr 11/05/21 12:30: Urine Opiates Screen NEGATIVE, Urine Methadone Screen NEGATIVE, Ur Barbiturates Screen NEGATIVE, Ur Phencyclidine Scrn NEGATIVE, Ur Amphetamines Screen NEGATIVE, MDMA (Ecstasy) Screen POSITIVE H, U Benzodiazepines Scrn NEGATIVE, Urine Cocaine Screen NEGATIVE, U Cannabinoids Screen NEGATIVE, Ur Drug Screen Comment 11/05/21 13:00: WBC 8.9, RBC 5.52, Hgb 17.3 H, Hct 47.7, MCV 86.4, MCH 31.3, MCHC 36.3 H, RDW Std Deviation 40.0, RDW Coeff of Luis Angel 13.0, Plt Count 265, MPV 9.3, Immature Gran % (Auto) 0.200, Neut % (Auto) 72.3 H, Lymph % (Auto) 18.0 L, [place] % (Auto) 8.9, Eos % (Auto) 0.3, Baso % (Auto) 0.3, Absolute Neuts (auto) 6.5, Absolute Lymphs (auto) 1.61, Nucleated RBC % 0 11/05/21 13:00: Sodium 140, Potassium 3.7, Chloride 108 H, Carbon Dioxide 25.0, Anion Gap 7, BUN 13, Creatinine 1.35 H, Estim Creat Clear Calc 80.24, Est GFR (MDRD) Af Amer 85, Est GFR (MDRD) Non-Af 70, BUN/Creatinine Ratio 9.6 L, Glucose 110 H, Calcium 9.9 11/05/21 13:00: Ethyl Alcohol < 3.0 11/05/21 14:23: Salicylates < 1.7 L, Acetone Level NEGATIVE Micro: Microbiology 11/05/21 13:00 Nasal Secretion SARS-CoV-2 Antigen (Rapid) - Final Rhythm Strip Rhythm Strip: Sinus Rhythm Rate: 82 Ectopy: None Physical Exam Narrative General: Alert, Oriented x3, Cooperative, No apparent distress HEENT: Atraumatic, PERRLA, EOMI, Normocephalic Oral: Dry mucosa Neck: Supple, No JVD Lungs: Clear to auscultation, Normal air movement, No rhonchi, No wheeze, No rales Cardiovascular: Regular rate, Regular Rhythm, Normal S1, Normal S2, No murmurs Abdomen: Soft, Non Tender, Non-Distended, No Hepato-splenomegaly Extremities: No edema, Capillary Refill Less than 3 Seconds Skin: No rashes, No breakdown Musculoskeletal: No Tenderness to Palpation of Joints or Extremities Neurological: Cranial nerves II-XII grossly intact, Motor Exam 5/5 strength throughout, Sensory exam intact to light touch and pain Psych/Mental Status: Normal Affect, Appropriate Assessment & Plan Assessment/Plan (1) Depression: PLAN: Plan 1. Intentional overdose of Wellbutrin/chronic depression ? He denied suicidal ideation to the admitting physician however per reports by his family, he had made statements to his dad that he just wants to end it ? We will give a liter fluid bolus today given his dehydration ? He is medically cleared for discharge to mental health facility DVT: Ambulation Charges/Coding Visit Charges OBSV E&M: 77193 Subsequent observation care L2
--- NOTE | 2021-11-06 11:22 | CM.ED ---
Addendum entered by Nathalie Anguiano 11/06/21 12:47: ANUPAMA met with patient. He has no outstanding legal issues. He said that [employer] had custody and placed his daughter at his house and then she fell on her back one time and had a couple of bruises and they removed her from the house. Patient reports he is going to counseling and parenting classes. Patient was advised that he is going to [facility]. ANUPAMA updated Marissa, fur vault attendant, regarding patient's issues with [employer]. Patient accepted at [facility]. Accepting MD is Dr. Vargas. Room number 0306. ANUPAMA updated ANUPAMA Hansen and Leroy Gamble RN. Plan: [facility] Nathalie ANTOINE LISWS Original Note: ANUPAMA faxed referral to [facility], Josette Dominguez and Alvaro Fulton. ANUPAMA received call from Marissa at [facility]. Dr Stanton has accepted. They need pink slip and advised to cross out [facility] and put [facility] with initials and fax. Marissa will then call this inspector automatic typewriter back with bed assignment. ANUPAMA called Alvaro Fulton and Josette Dominguez and advised placement had been located for patient.
--- NOTE | 2021-11-06 12:58 | PCM.DC.SUM ---
Providers Date of Admission: 11/05/21 Primary Care Physician: No Primary Care Phys Reason For Visit: OVERDOSE Diagnosis Discharge Diagnosis (1) Depression: Status: Acute Code(s): F32.A - Depression, unspecified Plan 1. Intentional overdose of Wellbutrin/chronic depression ? He denied suicidal ideation to the admitting physician however per reports by his family, he had made statements to his dad that he just wants to end it ? We will give a liter fluid bolus today given his dehydration ? He is medically cleared for discharge to mental health facility DVT: Ambulation Medications at Discharge Home Medications NK 11/05/21 Hospital Course Operations None Procedures None Summary of Care Provided Minutes Spent on Discharge: 36 Hospital Course: As he is Per HPI: ASHLI BOO, is a 21 M who presents to the emergency room at [facility] after his family called the squad to bring the patient and after he took 5-7 of Wellbutrin SR pills that were left at his home by his who had left the patient last week.? Patient supposedly told his father that he wanted to end it , he told this examiner he just took the medication because he wanted to feel better and he was depressed.? Patient was evaluated by social services coordinator in the emergency room and was pink slipped, poison control however recommended the patient be observed overnight for possible seizures due to the Wellbutrin.? Patient denies any chronic medical problems. Labs obtained were remarkable for creatinine 1.35, patient's talk screen was positive for MDMA. Patient was placed in observation status on PCU, he will be observed on telemetry. Hospital Course: 1.? Intentional overdose of Wellbutrin/chronic depression ? He denied suicidal ideation to the admitting physician however per reports by his family, he had made statements to his dad that he just wants to end it ? We will give a liter fluid bolus today given his dehydration ? He is medically cleared for discharge to mental health facility which she has been accepted to. Weight / BMI Weight Weight: 238 lb 15.697 oz Body Mass Index (BMI) 37.4 ABG / Lab / Microbiology Data Result Diagrams: 11/05/21 13:00 11/05/21 13:00 Laboratory: Laboratory Results - last 24 hr 11/05/21 13:00: WBC 8.9, RBC 5.52, Hgb 17.3 H, Hct 47.7, MCV 86.4, MCH 31.3, MCHC 36.3 H, RDW Std Deviation 40.0, RDW Coeff of Luis Angel 13.0, Plt Count 265, MPV 9.3, Immature Gran % (Auto) 0.200, Neut % (Auto) 72.3 H, Lymph % (Auto) 18.0 L, [place] % (Auto) 8.9, Eos % (Auto) 0.3, Baso % (Auto) 0.3, Absolute Neuts (auto) 6.5, Absolute Lymphs (auto) 1.61, Nucleated RBC % 0 11/05/21 13:00: Sodium 140, Potassium 3.7, Chloride 108 H, Carbon Dioxide 25.0, Anion Gap 7, BUN 13, Creatinine 1.35 H, Estim Creat Clear Calc 80.24, Est GFR (MDRD) Af Amer 85, Est GFR (MDRD) Non-Af 70, BUN/Creatinine Ratio 9.6 L, Glucose 110 H, Calcium 9.9 11/05/21 13:00: Ethyl Alcohol < 3.0 11/05/21 14:23: Salicylates < 1.7 L, Acetone Level NEGATIVE Microbiology: Microbiology 11/05/21 13:00 Nasal Secretion SARS-CoV-2 Antigen (Rapid) - Final D/C Instructions Discharge Diet: No restrictions Meaningful Use Info Meaningful Use Diagnoses (Choose all that apply): None applicable Discharge Plan Admission Admit Date/Time: 11/05/21 15:33 Attending Provider: Evan Diane Primary Care Provider: Care Physician,No Primary Consulting Providers: Vasiliy Izquierdo Discharge Orders/Prescriptions Prescriptions: No Action NK Referrals / Follow Up: Care Physician,No Primary [Primary Care Provider] - Disposition Discharge Orders: Discharge Patient (Routine); Ordered 11/06/21 Ordered By: Dr. Evan Diane Charges/Coding Visit Charges OBSV E&M: 30351 Observation care discharge
== END 2021-11-06 12:58 ==
LOC: ED 14:23 → PCU 16:28
PROVIDERS: Admitting Provider Internal Medicine; Emergency Provider Emergency Medicine; Visit Provider Family Medicine
DX: F32.A Depression, unspecified (principal); T43.292A Poisoning by other antidepressants, intentional self-harm, initial encounter; F17.210 Nicotine dependence, cigarettes, uncomplicated
CPT/HCPCS: 80048; 80307; 80329; 82009; 82077; 85025; 87811; 93005; 96360; 96361; 99218; 99285; J7030; J7040; G0378; G0480

== ENCOUNTER 2022-08-20 10:50 | Emergency (ER) | payer MEDICAID, SELFPAY ==
[2022-08-20 10:51] VITALS: BP 123/81; PULSE 93; RESP 18; TEMP 36.6; O2SAT 97; BMI 36.0
--- NOTE | 2022-08-20 11:02 | EX.ED.DYSGE1 ---
HPI History of Present Illness Chief Complaint: General Illness Informant: patient Narrative Narrative: Presenting myalgias last night mild cough and sweats. No fevers. No vomiting diarrhea. No urinary symptoms. Significant other viral illness last week. Vaccinated for COVID denies COVID infections in the past. Denies any past medical history. Denies taking any medications. Denies allergies. PFSH PFSH Home Medications azithromycin 250 mg tablet See Rx Instructions PO .COMPLEX #6 tabs 05/07/22 [Rx Last Taken Unknown] benzonatate 100 mg capsule 200 mg PO TID PRN cough #30 caps 05/07/22 [Rx Last Taken Unknown] Allergy/AdvReac Type Severity Reaction Status Date / Time No Known Allergies Allergy Verified 08/20/22 10:53 Surgical History Hx of appendectomy Hx of skin graft Social History Smoking Status: Current every day smoker tobacco type: cigarettes ROS ROS ED Constitutional Constitutional ED: Reports sweats; Denies chills or fever(s) Eyes Eyes: Denies change in vision ENT ENT ED: Denies dysphagia or sore throat Cardiovascular Cardiovascular: Denies chest pain, leg edema, palpitations or racing heartbeat Respiratory/Chest Respiratory/Chest: Reports cough; Denies dyspnea or dyspnea on exertion Gastrointestinal Gastrointestinal: Denies abdominal pain, diarrhea, nausea or vomiting Genitourinary Genitourinary ED: Denies dysuria, hematuria or urinary frequency Musculoskeletal Musculoskeletal: Reports myalgias; Denies back pain, extremity pain or neck pain Integumentary Denies rash or wounds Neurologic Neurologic: Denies headache(s), paresthesias or weakness EXAM Physical Exam Const Vital Signs: 08/20/22 10:51 Temperature 98 F Temperature Source Temporal Pulse Rate 93 Respiratory Rate 18 Blood Pressure 123/81 H Blood Pressure Mean 95 Pulse Ox 97 Oxygen Delivery Method Room Air Positive well nourished and well developed General Appearance ED: well developed and NAD HEENT Reports TM's clear and moist mucous membranes normocephalic and atraumatic Tympanic Membrane ED: Yes TM's clear Eyes PERRL, EOMs intact bilaterally and conjunctivae normal General Eye ED: Yes normal appearance of both eyes Neck no lymphadenopathy and supple General: Negative for tenderness Chest Wall Chest: Negative for tenderness Resp normal respiratory effort and normal air movement Effort and Inspection: symmetric chest movement; Negative for respiratory distress Cardio regular rate, regular rhythm and no murmurs Peripheral Pulses: pulses 2+ throughout GI normal to inspection, nondistended, normoactive bowel sounds and non-tender Palpation: Negative for guarding or rebound tenderness present Back/Spine no CVA tenderness and no thoracic nor lumbar tenderness Extremity normal to inspection General Extremety ED: Negative for edema or tenderness General Extremity: Negative for edema Neuro oriented x3 and no sensory deficits noted Sensorium / Orientation: awake and alert Skin no rashes or lesions noted and no wounds MDM MDM MDM Narrative Medical decision making narrative: Interventions / MDM: Differential diagnosis: Viral syndrome, COVID, influenza Diagnosis considered but do not suspect: Pneumonia, normal lung sounds pulse ox 97% room air. My EKG interpretation: N/A Imaging independently reviewed and interpreted by myself: N/A External documents reviewed: N/A Test considered but not ordered:N/A ED course: Patient myalgias mild cough. Nontoxic well-appearing. Agreed with ibuprofen he declines COVID or flu testing. He denies any other testing. He states he missed work today. Work note provided. Outpatient follow-up. Re-evaluation: stable Disposition discussed with patient/family/significant other: Patient Case discussed with consulting clinician: N/A This note was generated with [employer] dictation software. It may contain incorrect words, spelling, and punctuation that were not noted in checking the note before signing. Discharge Plan Triage Chief Complaint: General Illness ED Provider: Niko Dorantes Dx/Rx/DC Orders Clinical Impression: Acute viral syndrome, Myalgia Instructions: ED Myalgias, ED Viral Syndrome (Adult) Prescriptions: No Action azithromycin 250 mg tablet See Rx Instructions PO .COMPLEX Qty: 6 0RF Rx Instructions: take 500 mg today (day 1), then 250 mg for 4 days (days 2-5) PO benzonatate 100 mg capsule 200 mg PO TID PRN (Reason: cough) Qty: 30 0RF Primary Care Provider: Care Physician,No Primary Referrals: Maddie Briggs [Non-Staff] - 1 Week Care Physician,No Primary [Primary Care Provider] - Disposition Disposition: Home, Self Care
[2022-08-20] MEDS: Ibuprofen 600 MG Tablet PO (11:15)
== END 2022-08-20 11:17 | disposition home or self-care (01) ==
LOC: ED 11:09
PROVIDERS: Emergency Provider Emergency Medicine; Visit Provider Emergency Medicine
DX: B34.9 Viral infection, unspecified (principal); F17.210 Nicotine dependence, cigarettes, uncomplicated; M79.10 Myalgia, unspecified site

== ENCOUNTER 2022-08-20 21:42 | Emergency (ER) | payer MEDICAID, SELFPAY ==
[2022-08-20 21:43] VITALS: BP 127/80; PULSE 115; RESP 18; TEMP 38.2; O2SAT 99; BMI 38.9
--- NOTE | 2022-08-20 22:08 | EDS_ITS ---
HPI History of Present Illness Chief Complaint: Fever Informant: patient Narrative Narrative: Presents with fevers myalgias and sore throat. It sounds like symptoms may have started a day or 2 ago. He is not exactly sure. He was seen earlier in the day. He refused testing at that time. He comes back because he spiked a fever at home over 102. He did take some Motrin at 11:00 this afternoon but that is because he had muscle aches. He did not take any meds after his fever and it is now come down to 100.7. He has a sore throat. But he denies cough or congestion. He does admit to myalgias and malaise. His significant other had viral type syndrome recently and hers lasted about 24 to 48 hours. This patient has not had any nausea vomiting or diarrhea. He is on no medicines. He has no immunosuppression. He was COVID-vaccine. No known exposures other than his significant other. PFSH PFSH Home Medications azithromycin 250 mg tablet See Rx Instructions PO .COMPLEX #6 tabs 05/07/22 [Rx Last Taken Unknown] benzonatate 100 mg capsule 200 mg PO TID PRN cough #30 caps 05/07/22 [Rx Last Taken Unknown] penicillin V potassium 500 mg tablet 500 mg PO 4X/DAY #40 tabs 08/20/22 [Rx Last Taken Unknown] Allergy/AdvReac Type Severity Reaction Status Date / Time No Known Allergies Allergy Verified 08/20/22 21:43 Surgical History Hx of appendectomy Hx of skin graft Social History Smoking Status: Current every day smoker tobacco type: cigarettes ROS ROS ED Constitutional Constitutional ED: Reports chills and fever(s); Denies sweats Eyes Eyes: Denies blurry vision ENT ENT ED: Reports sore throat; Denies ear pain or rhinorrhea Cardiovascular Cardiovascular: Denies chest pain Respiratory/Chest Respiratory/Chest: Denies cough or dyspnea Gastrointestinal Gastrointestinal: Denies nausea or vomiting Genitourinary Genitourinary ED: Denies dysuria Musculoskeletal Musculoskeletal: Reports myalgias Integumentary Denies rash Neurologic Neurologic: Denies headache(s) Hematologic/Lymphatic Hematologic/Lymphatic: Denies lymphadenopathy Allergic/Immunologic Allergic/Immunologic ED: Denies urticaria EXAM Physical Exam Narrative Exam Narrative: CONSTITUTIONAL: Patient is nontoxic in appearance. The patient looks comfortable. Work of breathing looks normal. He is sitting on bed looks comfortable. HEENT: No notable trauma. Mucous membranes are still moist. Mild erythema but no enlarged tonsils and no exudate. No sinus tenderness. No indication of pain with swallowing. Tympanic membranes are both clear. EYES: No conjunctival injection. NECK:No JVD. No stridor. No lymphadenopathy noted. CARDIOVASCULAR: Regular rate at about 90 at this time. Regular rhythm. No notable murmur. No JVD. RESPIRATORY: No respiratory distress. Breathing is unlabored. No wheezes. No r honchi. No rales. No pain with a deep breath. No chest wall tenderness. GASTROINTESTINAL: Not distended. Bowel sounds are normal. No tenderness. No guarding. No rebound. No palpable mass. No bruit is heard. GENITOURINARY: No tenderness over the bladder. No CVA tenderness. MUSCULOSKELETAL: Atraumatic. No peripheral edema. NEUROLOGICAL: Patient is alert and appropriate. No focal deficit noted. SKIN: No noted rashes. No diaphoresis. No vesicles petechiae or purpura. PSYCHIATRIC: Patient is calm. Mood is appropriate. Const Vital Signs: 08/20/22 21:43 08/20/22 21:54 Temperature 100.7 F H Temperature Source Temporal Pulse Rate 115 H Respiratory Rate 18 Respiratory Pattern Normal Blood Pressure 127/80 H Blood Pressure Mean 95 Pulse Ox 99 MDM MDM MDM Narrative Medical decision making narrative: Patient's rapid strep test came back as positive. With sore throat mild erythema lack of cough and positive strep we will treat him. He will be given a dose of penicillin here and prescription to go. We discussed reasons to return. I will also give him a dose of Decadron for his symptoms. Discharge Plan Triage Chief Complaint: Fever ED Provider: Jeremy Hinkle Dx/Rx/DC Orders Clinical Impression: Myalgia, Fever, Strep pharyngitis Instructions: ED Pharyngitis, Strep (Presumed) Prescriptions: New penicillin V potassium 500 mg tablet 500 mg PO 4X/DAY Qty: 40 0RF No Action azithromycin 250 mg tablet See Rx Instructions PO .COMPLEX Qty: 6 0RF Rx Instructions: take 500 mg today (day 1), then 250 mg for 4 days (days 2-5) PO benzonatate 100 mg capsule 200 mg PO TID PRN (Reason: cough) Qty: 30 0RF Primary Care Provider: Care Physician,No Primary Referrals: Carrie Marie MD [Med Staff - Continuous Improvement Coach] - 3-5 Days if not improving Care Physician,No Primary [Primary Care Provider] - Disposition Disposition: Home, Self Care
[2022-08-20] MEDS: Acetaminophen 500 MG Tablet 1000 MG PO (22:25)
[2022-08-20] MEDS: dexAMETHasone 4 MG Tablet 10 MG PO (23:49)
[2022-08-20] MEDS: Penicillin Vk 250 MG Tablet 500 MG PO (23:49)
== END 2022-08-20 23:57 | disposition home or self-care (01) ==
PROVIDERS: Emergency Provider Emergency Medicine; Visit Provider Emergency Medicine
DX: J02.0 Streptococcal pharyngitis (principal); M79.10 Myalgia, unspecified site; F17.210 Nicotine dependence, cigarettes, uncomplicated; B34.9 Viral infection, unspecified
CPT/HCPCS: 87880; 99283

== ENCOUNTER 2023-01-29 19:18 | Emergency (ER) | payer MEDICAID, SELFPAY ==
[2023-01-29 19:18] VITALS: BP 149/98; PULSE 88; RESP 16; TEMP 36.6; O2SAT 98; BMI 37.1
--- NOTE | 2023-01-29 19:52 | EDS_ITS ---
HPI HPI - URI History of Present Illness Chief Complaint: Cough Informant: patient Onset/Context/Timing Onset: Weeks Context: Gradual Onset Timing: Continuous Current Severity: Mild Maximum Severity: Mild Narrative Narrative: 32-year-old male no seen past medical history. Said he had a nonproductive cough for last 3 weeks. Denies any fever. He has some right rib cage pain with coughing. No hemoptysis. No history of DVT or PE. No leg pain or swelling. States he just cannot quit coughing. Prior similar symptoms: No Recent Illness/Hospitalization: No ROS ROS ED ROS Narrative Nonproductive cough. Review of Systems ROS Unobtainable: Denies due to encephalopathy Constitutional Constitutional ED: Denies chills or fever(s) ENT ENT ED: Denies ear pain Cardiovascular Cardiovascular: Reports chest pain Respiratory/Chest Respiratory/Chest: Reports cough; Denies dyspnea or dyspnea on exertion Gastrointestinal Gastrointestinal: Denies abdominal pain, constipation, diarrhea, melena, nausea or vomiting Genitourinary Genitourinary ED: Denies dysuria or hematuria Musculoskeletal Musculoskeletal: Denies arthralgias Integumentary Denies abscess Neurologic Neurologic: Denies headache(s) Psychiatric Psychiatric: Denies anxiety Endocrine Endocrinology: Denies cold intolerance Hematologic/Lymphatic Hematologic/Lymphatic: Denies easy bleeding or easy bruising Allergic/Immunologic Allergic/Immunologic ED: Denies mouth swelling, tongue swelling or urticaria PFSH PFSH Medical History no medical history no medical history Home Medications azithromycin 250 mg tablet See Rx Instructions PO .COMPLEX #6 tabs 05/07/22 [Rx Last Taken Unknown] benzonatate 100 mg capsule 200 mg (2 x 100 mg) PO TID PRN cough #30 caps 05/07/22 [Rx Last Taken Unknown] penicillin V potassium 500 mg tablet 500 mg PO 4X/DAY #40 tabs 08/20/22 [Rx Last Taken Unknown] Allergy/AdvReac Type Severity Reaction Status Date / Time No Known Allergies Allergy Verified 01/29/23 19:19 Surgical History Hx of appendectomy Hx of skin graft Social History Smoking Status: Current every day smoker tobacco type: cigarettes EXAM Physical Exam Narrative Exam Narrative: Well-appearing 22-year-old male. Vital signs stable afebrile. Pulse ox 98% on room air no signs hypoxia. HEENT exam unremarkable. Neck nontender no lymphadenopathy. Lungs clear to auscultation bilaterally. Dry cough. Heart regular rhythm rate about 90 no murmur. Chest wall and ribs nontender. Abdomen soft nontender. Back nontender. Moving all 4 extremities. Nontender no edema no cords. Awake and alert. Const Vital Signs: 01/29/23 19:18 01/29/23 19:36 Temperature 97.9 F Temperature Source Temporal Pulse Rate 88 Respiratory Rate 16 Respiratory Effort Normal Respiratory Depth Normal Respiratory Pattern Normal Blood Pressure 149/98 H Blood Pressure Mean 115 Pulse Ox 98 Oxygen Delivery Method Room Air Positive well nourished and well developed; Negative for cachectic or contractures General Appearance ED: well developed and NAD; Negative for cachectic, contractures, cyanotic, diaphoretic or pallor Nutritional Appearance: Negative for cachectic HEENT Reports moist mucous membranes normocephalic and atraumatic Throat: posterior oropharynx normal Eyes PERRL and EOMs intact bilaterally Neck no lymphadenopathy, supple, no meningeal signs and no JVD General: Negative for anterior neck swelling or lymphadenopathy Chest Wall Chest Narrative: Nontender. Resp normal respiratory effort and clear to auscultation bilaterally Effort and Inspection: Negative for retractions Auscultation: Negative for rales, rhonchi or wheezes Cardio S1 normal heart sound, S2 normal heart sound and no murmurs Rate: regular rate Rhythm: regular rhythm GI non-tender, non-distended and no masses Inspection: Negative for abdominal distention Auscultation: normoactive bowel sounds Palpation: soft; Negative for tender or guarding Back/Spine no CVA tenderness and normal ROM General Back: Negative for CVA tenderness Cervical Spine: Negative for cervical spine tenderness Thoracic Spine / Upper Back: Negative for thoracic spinal tenderness Lumbar Spine / Lower Back: Negative for lumbar spinal tenderness Sacrum: Negative for tenderness Extremity normal to inspection and full ROM General Extremety ED: Negative for cyanosis, tenderness or other findings General Extremity: Negative for cyanosis or other findings Neuro oriented x3 and CN's II-XII intact bilaterally Sensorium / Orientation: alert, oriented to person, oriented to place and oriented to time; Negative for orientation impaired, lethargic or stuporous Motor Exam: strength 5/5 throughout Psych mental status grossly normal Appearance: Negative for other Attitude: No agitated Mood & Affect: Negative for depressed, anxious or tearful Skin General Skin Exam: Negative for jaundice or pallor Rashes: no rashes Trauma: Negative for abrasion MDM MDM MDM Narrative Medical decision making narrative: 22-year-old male with nonproductive cough for 3 weeks. Chest x-ray being obtained. Clinically I do not hear pneumonia. I suspect this is viral syndrome. Repeat exam patient doing well at 8:30 PM. To be discharged home. [id number] cough syrup. Follow-up if not improving. History & Record Review Discussion w/independent historian: Patient and Family Radiography Chest X-Ray - ED: 2 View, Read by ED Physician, Heart, Lungs, Mediastinum, Bony Structures, No Acute Disease and Chronic Changes Diagnostic Testing: Clinical Impression(s) from Imaging Studies Chest X-Ray 01/29/23 20:13 IMPRESSION: No acute pulmonary finding. Electronically Signed: John Moura MD at 20:27 EST Reading Location ID and State: [address] [place] [address] Tel , Service support , Chest x-ray, 2 views, AP and lateral, interpreted by myself shows no acute abnormality. Normal cardiac silhouette. Normal mediastinum. Normal lung arreaga. Discharge Plan Triage Chief Complaint: Cough ED Provider: Miguel Bethea Dx/Rx/DC Orders Clinical Impression: Acute viral syndrome Instructions: ED URI, Viral, No Abx (Adult) Prescriptions: No Action azithromycin 250 mg tablet See Rx Instructions PO .COMPLEX Qty: 6 0RF Rx Instructions: take 500 mg today (day 1), then 250 mg for 4 days (days 2-5) PO benzonatate 100 mg capsule 200 mg PO TID PRN (Reason: cough) Qty: 30 0RF penicillin V potassium 500 mg tablet 500 mg PO 4X/DAY Qty: 40 0RF Primary Care Provider: Care Physician,No Primary Referrals: rJ Conn MD [Med Staff - Family Practice Medical Doctor] - As Needed Care Physician,No Primary [Primary Care Provider] - Activity Restrictions/Additional Instructions: Over the counter cough syrup. Your chest x-ray was unremarkable. Follow-up if not improving. Disposition Disposition: Home, Self Care
--- NOTE | 2023-01-29 20:13 | RAD_ITS ---
INDICATION: cough EXAMINATION/TECHNIQUE: X-RAY - XR Chest 2 Views COMPARISON: 02/26/2018 FINDINGS: LINES/DEVICES: None. LUNGS: The lungs are well expanded. No consolidation, edema or effusion. No pneumothorax. MEDIASTINUM AND CARDIOVASCULAR STRUCTURES: Cardiac silhouette not enlarged. Central airways and mediastinal contour are unremarkable. BONES AND SOFT TISSUES: Unremarkable. RAD/Chest PA and Lateral IMPRESSION: No acute pulmonary finding. Electronically Signed: John Moura MD at 20:27 EST ,
== END 2023-01-29 20:43 | disposition home or self-care (01) ==
PROVIDERS: Emergency Provider Emergency Medicine; Visit Provider Emergency Medicine
DX: B34.9 Viral infection, unspecified (principal); R05.9 Cough, unspecified; R07.81 Pleurodynia; F17.210 Nicotine dependence, cigarettes, uncomplicated
CPT/HCPCS: 71046; 99282

== ENCOUNTER 2024-05-17 04:14 | Emergency (ER) | payer OTHER, SELFPAY ==
[2024-05-17 04:15] VITALS: BP 118/69; PULSE 61; RESP 18; TEMP 36.4; O2SAT 98; BMI 33.0
[2024-05-17] MEDS: Tetracaine 0.5% Ophthalmic Bottle 1 DRP EACH EYE (04:33)
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
[2024-05-17 04:48] VITALS: BP 101/64; PULSE 68; RESP 16; TEMP 36.4; O2SAT 97
== END 2024-05-17 04:55 | disposition home or self-care (01) ==
PROVIDERS: Emergency Provider Emergency Medicine; Visit Provider Emergency Medicine
DX: H16.133 Photokeratitis, bilateral (principal); F31.9 Bipolar disorder, unspecified; W89.0XXA Exposure to welding light (arc), initial encounter; F17.210 Nicotine dependence, cigarettes, uncomplicated
CPT/HCPCS: 99283